=== PATIENT | female | born 1970 | race African-American/Black ===

== ENCOUNTER 2019-01-03 23:55 | Emergency (ER) | payer SELFPAY ==
[~2019-01-03] VITALS: Ht 162.6 cm; Wt 80.0 kg
[2019-01-04 01:39] LABS: BASOPHILS % 0.9 % (0.0-2.0); EOSINOPHILS % 2.3 % (0.0-5.0); HEMOGLOBIN. 11.8 g/dL (12.0-16.0); LYMPHOCYTES % 32.5 % (20.0-50.0); MEAN CORPUSCULAR HEMOGLOBIN 28.6 pg (28.0-32.0); MEAN CORPUSCULAR VOLUME 86.9 fL (81.0-99.0); MEAN PLATELET VOLUME 9.5 fl (7.4-10.4); MONOCYTES % 9.4 % (2.0-8.0); NEUTROPHILS % 54.9 % (40.0-76.0); PLATELET 254 x1000/uL (130-400); RED BLOOD CELL COUNT 4.14 mill/uL (4.2-5.4); RED CELL DISTRIBUTION WIDTH 14.1 % (11.6-14.6)
[2019-01-04 01:45] LABS: CHLORIDE 110 mEq/L (98-107)
[2019-01-04 01:51] LABS: BETA HYDROXYBUTYRATE 0.1 mMol/L (0.0-0.3)
[2019-01-04] MEDS ORDERED: IOHEXOL-350 100 ML BOTTLE ONE (03:48)
[2019-01-04 04:48] LABS: CLARITY URINE CLEAR (CLEAR); COLOR URINE YELLOW (YELLOW); KETONES URINE NEGATIVE (NEGATIVE); LEUKOCYTE ESTERASE URINE NEGATIVE (NEGATIVE); NITRITE URINE NEGATIVE (NEGATIVE); OCCULT BLOOD URINE NEGATIVE (NEGATIVE); PROTEIN URINE NEGATIVE (NEGATIVE); SPECIFIC GRAVITY URINE 1.049 (1.005-1.030); UROBILINOGEN URINE 0.2 E.U./dL (0.2-1.0)
[2019-01-04 05:18] VITALS: BP 118/80
== END 2019-01-04 05:22 | disposition home or self-care (01) ==
LOC: ER 23:55
DX: R53.1 Weakness (principal); R06.02 Shortness of breath; I95.9 Hypotension, unspecified; J45.909 Unspecified asthma, uncomplicated; E11.9 Type 2 diabetes mellitus without complications; E78.00 Pure hypercholesterolemia, unspecified; I10 Essential (primary) hypertension
CPT/HCPCS: 36415; 71045; 71275; 80053; 81003; 82010; 83605; 84484; 85025; 93005; 93970; 99284; Q9967; Z7610